=== PATIENT | female | born 1960 | race Two or more races ===

== ENCOUNTER 2018-10-22 12:21 | Inpatient (IN) | payer BC, OTHER ==
[~2018-10-22] VITALS: Ht 157.5 cm; Wt 99.4 kg
[2018-10-22] MEDS ORDERED: MORPHINE SULFATE 4 MG/ML SYR/VIAL IV ONE (12:45)
[2018-10-22] MEDS ORDERED: ONDANSETRON HCL 4 MG/2 ML VIAL IV ONE (12:45)
[2018-10-22 13:38] LABS: Urine Bacteria NONE SEEN /hpf (None Seen); Urine Blood TRACE /uL (Negative); Urine Mucus FEW (None Seen); Urine Specific Gravity 1.018 (1.001-1.035); Urine WBC 1 /hpf (0 - 5)
[2018-10-22] MEDS ORDERED: LEVOFLOXACIN 500MG 100 ML IV ONE (14:15)
[2018-10-22 14:26] LABS: Hematocrit 34.1 % (36.0-46.0); Hemoglobin 11.7 g/dL (12.2-16.2); Mean Corpuscular Hemoglobin 31.3 pg (28.0-32.0); Mean Corpuscular Hgb Conc. 34.2 g/dL (32.0-36.0); Mean Corpuscular Volume 91.5 fL (80.0-100.0); Platelet Count (auto) 25 10^3/uL (140-450); Red Blood Cells 3.73 10^6/uL (4.0-5.20); Red Cell Distribution Width 15.8 % (11.8-14.3); White Blood Cell 5.2 10^3/uL (4.4-10.8)
[2018-10-22 14:39] LABS: INR 1.34 (0.9-1.15); Partial Thromboplastin Time 26.2 sec (23.78-33.04); Prothrombin Time 14.1 sec (9.27-12.13)
[2018-10-22 14:41] LABS: Albumin 2.4 g/dL (3.4-5.0); Calcium 7.9 mg/dL (8.5-10.1); Potassium 3.5 mmol/L (3.5-5.1)
[2018-10-22 14:44] LABS: BUN/Creatinine Ratio 22.4
[2018-10-22 14:47] LABS: Bilirubin, Total 2.6 mg/dL (0.2-1.0); Total Protein 5.5 g/dL (6.4-8.2)
[2018-10-22 14:51] LABS: Lactic Acid w/Reflex 3.4 mmol/L (0.4-2.0)
[2018-10-22 15:27] LABS: Band Neutrophils % (manual) 0; Basophils % (manual) 0 (0.0-2.0); Blast Cells 0; Eosinophils % (manual) 0 (0-7); Metamyelocytes % 0; Myelocytes % 0; Promyelocytes % 0; Reactive Lymphocytes 0
[2018-10-22] MEDS ORDERED: NITROGLYCERIN 0.4 MG SL TAB SL PRN (15:30)
[2018-10-22] MEDS ORDERED: MORPHINE SULF INJ 2 MG/ML SYRINGE 1ML IV PRN (15:30)
[2018-10-22] MEDS ORDERED: D5W/SOD CHLO 0.9% 1,000 ML IV ONE (15:30)
[2018-10-22 15:57] LABS: Lymphocytes % (manual) 3 (10.0-50.0); Monocytes % (manual) 4 (0-12)
[2018-10-22 15:58] LABS: Amylase 47 U/L (25-115); Lipase 157 U/L (73-393)
[2018-10-22] MEDS: SODIUM CHLORIDE 0.9% 1,000 ML IV SCH ×2 (16:01→22:23)
[2018-10-22] MEDS: HYDROmorphone HCL 2 MG/ML VL IV PRN ×2 (17:06→22:23)
[2018-10-22] MEDS: ONDANSETRON HCL 4 MG/2 ML VIAL IV PRN (17:06)
--- NOTE | 2018-10-22 18:30 | NUR ---
PATIENT ARRIVED TO THE UNIT WITH AT BEDSIDE, NO DISTRESS NOTED, PATIENT HAS MINIMAL PAIN DUE TO PREVIOUS MEDICATION ADMINISTRATION IN ER. BED LOCKED IN LOWEST POSITION WITH TWO SIDE RAILS UP AND CALL LIGHT IN REACH. INSTRUCTED THE PATIENT ON THE PLAN OF CARE AND WILL CONTINUE TO MONITOR Q HOURLY AND NEEDED.
[2018-10-22 18:45] VITALS: BP 92/57
[2018-10-22 18:59] VITALS: BP 92/52
[2018-10-22] MEDS ORDERED: FURO20TA3 PO (19:03)
[2018-10-22 21:22] VITALS: BP 100/58
[2018-10-23 05:00] VITALS: BP 90/47
[2018-10-23 06:20] LABS: Basophils # (auto) 0 uL; Eosinophils # (auto) 0 uL; Lymphocytes # (auto) 0.2 uL
[2018-10-23] MEDS: HYDROmorphone HCL 2 MG/ML VL IV PRN ×3 (06:22→20:04)
[2018-10-23 06:24] LABS: Hematocrit 32.2 % (36.0-46.0); Lymphocytes % (auto) 1.3 % (10.0-50.0); Mean Corpuscular Hemoglobin 31.3 pg (28.0-32.0); Mean Corpuscular Hgb Conc. 34.1 g/dL (32.0-36.0); Mean Corpuscular Volume 91.7 fL (80.0-100.0); Monocytes % (auto) 8.1 % (0.0-12.0); Neutrophils # (auto) 11.2 uL; Neutrophils % (auto) 90.6 % (37.0-80.0); Platelet Count (auto) 27 10^3/uL (140-450); Red Blood Cells 3.51 10^6/uL (4.0-5.20); White Blood Cell 12.4 10^3/uL (4.4-10.8)
[2018-10-23 06:44] LABS: Magnesium 1.5 mg/dL (1.6-2.6); Potassium 4.7 mmol/L (3.5-5.1)
[2018-10-23 06:50] LABS: Albumin 2.3 g/dL (3.4-5.0); BUN/Creatinine Ratio 32.5; Bilirubin, Total 2.2 mg/dL (0.2-1.0); Total Protein 5.4 g/dL (6.4-8.2)
--- NOTE | 2018-10-23 07:45 | NUR ---
OPENING NOTE ASSUMED CARE OF PT. PT IS A&O X4. ON ROOM AIR, O2 SATURATION 97%. NO SIGNS OF SOB/DISTRESS NOTED. TELE #[id number], HR 68. VERMA CATH INTACT, PATENT AND DRAINING LIGHT SHEREEN URINE TO GRAVITY. BED SET TO LOWEST POSITION/LOCKED, BEDSIDE RAILS UP TO X2, CALL LIGHT WITHIN REACH. INSTRUCTED PT TO CALL FOR ASSISTANCE. DISCUSSED POC WITH PT. PT VERBALIZED UNDERSTANDING. WILL CONTINUE TO MONITOR Q 1HR AND PRN.
[2018-10-23 08:39] VITALS: BP 94/51
[2018-10-23] MEDS: PANTOPRAZOLE 40 MG/10 ML VIAL IV SCH (09:11)
--- NOTE | 2018-10-23 09:55 | NUR ---
RECEIVED CALL FROM [facility] FROM [facility] . REQUESTING AN UPDATE ON THE PATIENT, PATIENT IS ON THE LIVER TRANSPLANT. DR. IYV IS FOLLOWING HER THERE.
[2018-10-23] MEDS ORDERED: VANCOMYCIN 1,250 MG in D5W 5% 250 ML IV ONE (10:45)
[2018-10-23] MEDS ORDERED: VANCOMYCIN PER PHARMACY 0 MG IV SCH (10:45)
[2018-10-23] MEDS ORDERED: MEROPENEM 1GM IVPB 100 ML IV SCH (11:30)
--- NOTE | 2018-10-23 11:45 | NUR ---
SPOKE TO DR. CHANDRA AT THE NURSES STATION, CLARIFIED [place] ORDER. PER DR. PRATEEK ARRIETA TO GIVE. WILL CONTINUE TO MONITOR PATIENT.
[2018-10-23] MEDS: VANCOMYCIN 1GM/250ML 250 ML IV SCH ×2 (12:30→23:35)
[2018-10-23] MEDS: SODIUM CHLORIDE 0.9% 1,000 ML IV SCH ×2 (12:30→21:51)
[2018-10-23 12:33] VITALS: BP 95/52
[2018-10-23] MEDS: MEROPENEM 1GM IVPB 100 ML IV SCH (15:04)
[2018-10-23 16:24] VITALS: BP 103/66
--- NOTE | 2018-10-23 18:06 | NUR ---
ROUNDED ON PATIENT. PATIENT STATED "MY IPHONE IS MISSING, I HAD IT ON MY CHEST AND SOMEONE CAME AND TOOK IT." NURSE LOOKED FOR PHONE AND WAS NOT FOUND. PATIENT CALLED PHONE, PER PATIENT IT WENT STRAIGHT TO [employer]. PATIENT CALLED DAUGHTER TO SEE IF SHE WOULD BE ABLE TO LOCATE PHONE WITH HOME COMPUTER (FIND MY IPHONE) . WILL MAKE CHARGE NURSE AWARE AND JOSE A.
--- NOTE | 2018-10-23 18:17 | NUR ---
LEFT MESSAGE FOR JOSE A MAKING HER AWARE OF THE CURRENT IPHONE SITUATION.
--- NOTE | 2018-10-23 18:36 | NUR ---
IS REQUESTING TO SPEAK TO SECURITY. SECURITY WAS CALLED AND INFORMED OF SITUATION.
--- NOTE | 2018-10-23 19:30 | NUR ---
OPENING NOTE REPORT RECEIVED FROM DAY SHIFT RN PATIENT IS A/OX4, RESTING IN BED WITH AT BEDSIDE. PATIENT AND UPSET AND STATE, "MY PHONE WAS STOLEN EARLIER TODAY". PENDING SECURITY TO COME AND SPEAK WITH PATIENT. PHYSICAL ASSESSMENT DONE-SEE INTERVENTIONS. VERMA DRAINING LIGHT SHEREEN URINE TO GRAVITY. IV FLUIDS INFUSING THROUGH LEFT FOREARM IV. PT NPO AT THIS TIME. POC FOR TONIGHT DISCUSSED AND ALL QUESTIONS ANSWERED. WILL MONITOR Q1H PRN THROUGHOUT SHIFT, CALL LIGHT WITHIN REACH.
--- NOTE | 2018-10-23 19:43 | NUR ---
ENDORSED CARE TO MICH REGAN. NURSE WAS MADE OF CURRENT PHONE SITUATION.
[2018-10-23] MEDS: ONDANSETRON HCL 4 MG/2 ML VIAL IV PRN (20:04)
[2018-10-23 22:00] VITALS: BP 104/60
[2018-10-24] MEDS: MEROPENEM 1GM IVPB 100 ML IV SCH ×2 (01:39→14:15)
[2018-10-24 04:51] VITALS: BP 108/53
[2018-10-24 06:25] LABS: Albumin 2.2 g/dL (3.4-5.0); Calcium 7.5 mg/dL (8.5-10.1)
[2018-10-24 06:28] LABS: BUN/Creatinine Ratio 39.4
[2018-10-24 06:31] LABS: Bilirubin, Total 2.5 mg/dL (0.2-1.0); Total Protein 5.3 g/dL (6.4-8.2)
--- NOTE | 2018-10-24 07:15 | NUR ---
Opening note Assumed care from grapple yarder operator RN. Pt presented A&Ox4 in bed, in lower locked position with catheter bag on the bed. RN educated the pt on returning urine bag to a lower position in order to avoid back flow of urine into the bladder, and place bag on the bedrail to drain to gravity. Pt verbalized understanding. Pt expresses not being able to have a bowel movement due to having a catheter in place. IVs are present to the rt AC with an 18G and Lt forearm with 18G, both are patent. Pt is uncomfortable stating she is feeling pain in her abdomen at 7/10. SOB is not present at this time, pt states she does not need the nasal canula that was previously on at 2L.
--- NOTE | 2018-10-24 07:29 | NUR ---
CLOSING NOTE REPORT ENDORSED TO DAY SHIFT RN PATIENT IS IN RESTROOM AT THIS TIME, ATTEMPTING TO HAVE A BM. NO DISTRESS THROUGHOUT SHIFT.
[2018-10-24 08:00] VITALS: BP 99/45
--- NOTE | 2018-10-24 08:03 | NUR ---
Rufino hospitalistEmmanuel Regarding Patient requesting order for breathing treatment, patient has history of asthma. awaiting call back. Addendum: 10/24/18 at 2028 by LOVE BATRES RN wrong time
[2018-10-24 08:10] VITALS: BP 99/45
[2018-10-24] MEDS: PANTOPRAZOLE 40 MG/10 ML VIAL IV SCH (09:52)
[2018-10-24] MEDS: HYDROmorphone HCL 2 MG/ML VL IV PRN (09:52)
[2018-10-24] MEDS: SODIUM CHLORIDE 0.9% 1,000 ML IV SCH ×2 (10:06→17:44)
[2018-10-24 11:45] VITALS: BP 96/45
[2018-10-24] MEDS: VANCOMYCIN 1GM/250ML 250 ML IV SCH (12:04)
[2018-10-24 16:18] VITALS: BP 100/55
--- NOTE | 2018-10-24 17:53 | NUR ---
Cortés catheter dc'd Order to discontinue cortés catheter. Cortés dc'd with clean technique following deflation of balloon. Patient tolerated well with no complaints of pain. Continue care. Cortés bag empty because nurse aid just emptied it before their shift change. Will continue to monitor patient to make urination is not impaired.
--- NOTE | 2018-10-24 19:35 | NUR ---
Opening Shift Note Assumed care of patient, awake and alert X4. No S/S of distress/SOB on room air. Denies pain. Instructed on POC and to call for assist PRN, will continue to monitor for changes Q1hr and PRN.
--- NOTE | 2018-10-24 19:54 | NUR ---
Paged hospitalist awaiting call back
--- NOTE | 2018-10-24 20:03 | NUR ---
Paged hospitalistEmmanuel Regarding Patient requesting order for breathing treatment, patient has history of asthma. awaiting call back.
--- NOTE | 2018-10-24 20:30 | NUR ---
PATIENTS DAUGHTER CALLED REGARDING SNF PLACEMENT PASSWORD VERIFIED, ACCORDING TO PATIENT'S DAUGHTER SHE IS RETURNING CALL FROM RIYA MARTINEZ REGARDING PLACEMENT TO SNF. SHE AGREES WITH POC AND PLACEMENT TO SNF.
[2018-10-24 21:35] VITALS: BP 99/51
[2018-10-24] MEDS ORDERED: ALBUTEROL SULF 2.5 MG/0.5ML(0.5%) NEB SOLN NEB SCH (22:00)
[2018-10-25] VITALS (7 sets, daily range): BP systolic 95–106; BP diastolic 49–57
[2018-10-25] MEDS: VANCOMYCIN 1GM/250ML 250 ML IV SCH ×3 (00:20→23:59)
[2018-10-25] MEDS: MEROPENEM 1GM IVPB 100 ML IV SCH ×3 (02:44→21:42)
[2018-10-25] MEDS: ALBUTEROL SULF 2.5 MG/0.5ML(0.5%) NEB SOLN NEB PRN ×4 (03:54→22:46)
--- NOTE | 2018-10-25 04:23 | NUR ---
ROUNDS PATIENT SLEEPING NO S/S OF PAIN OR DISTRESS RESPIRATIONS EVEN AND UNLABORED. WILL CONTINUE TO MONITOR.
--- NOTE | 2018-10-25 07:00 | NUR ---
Opening Shift Note Assumed care of patient, awake and alert. No S/S of distress/SOB. Pain reported to abdomen. Pain management options discussed with patient. Instructed on POC and to call for assist PRN, will continue to monitor for changes Q1hr and PRN.
[2018-10-25] MEDS: PANTOPRAZOLE 40 MG/10 ML VIAL IV SCH (09:26)
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
--- NOTE | 2018-10-25 12:06 | NUR ---
Respiratory note: ASSESSED PATIENT FOR PRN TX. PATIENT ASKED IF SHE COULD HAVE ONE. PATIENT RECEIVED BREATHING TX W/O ANY ADVERSE REACTIONS. HR 86, RR 18, SPO2 95% ON ROOM AIR. PATIENT IS AWARE TO HAVE RT PAGED IF BREATHING TX IS NEEDED. WILL CONTINUE TO MONITOR PATIENT.
--- NOTE | 2018-10-25 12:17 | NUR ---
Nutrition Assessment Notes please see attached link for complete assessment Est. Needs ABW [id number] kcal (20-23 kcal/kgBW), 58-73 gms pro (0.8-1.0 gms/kgABW r/t severe hypoalb, elev ammonia). Will continue to monitor pertinent labs and reassess nutrient need prn Addendum: 10/25/18 at [address] Amended: Links added.
[2018-10-25] MEDS: SODIUM CHLORIDE 0.9% 1,000 ML IV SCH ×2 (13:53)
--- NOTE | 2018-10-25 15:00 | NUR ---
PATIENT TOLERATED HER LUNCH WELL. NO NAUSEA, PAIN, OR VOMITING. WILL ADVANCE DIET FOR DINNER THIS EVENING. PATIENT IS AWARE AND AGREES TO ADVANCING THE DIET.
--- NOTE | 2018-10-25 16:22 | NUR ---
Respiratory note: PRN TX GIVEN AT THIS TIME. PATIENT TOLERATED BREATHING TX WELL W.O ANY ADVERSE REACTIONS. WILL CONTINUE TO MONITOR PATIENT.
[2018-10-26] MEDS: HYDROmorphone HCL 2 MG/ML VL IV PRN ×2 (02:02→19:38)
[2018-10-26] MEDS: SODIUM CHLORIDE 0.9% 1,000 ML IV SCH ×3 (02:03→23:19)
[2018-10-26 05:00] VITALS: BP 113/61
[2018-10-26] MEDS: MEROPENEM 1GM IVPB 100 ML IV SCH ×3 (05:41→21:22)
[2018-10-26 06:00] LABS: White Blood Cell 4.3 10^3/uL (4.4-10.8)
[2018-10-26 06:03] LABS: Hematocrit 29.5 % (36.0-46.0); Hemoglobin 10.3 g/dL (12.2-16.2); Mean Corpuscular Hemoglobin 31.7 pg (28.0-32.0); Mean Corpuscular Volume 90.5 fL (80.0-100.0); Platelet Count (auto) 36 10^3/uL (140-450); Red Blood Cells 3.26 10^6/uL (4.0-5.20); Red Cell Distribution Width 16.1 % (11.8-14.3)
[2018-10-26 06:13] LABS: Basophils % (manual) 0 (0.0-2.0); Blast Cells 0; Metamyelocytes % 0; Myelocytes % 0; Promyelocytes % 0; Reactive Lymphocytes 0
[2018-10-26 06:15] LABS: Albumin 2.2 g/dL (3.4-5.0); Calcium 7.1 mg/dL (8.5-10.1); Potassium 3.2 mmol/L (3.5-5.1)
[2018-10-26 06:19] LABS: BUN/Creatinine Ratio 23.5; Bilirubin, Total 1.9 mg/dL (0.2-1.0)
--- NOTE | 2018-10-26 07:25 | NUR ---
Opening Shift Note Assumed care of patient, awake and alert. No S/S of distress/SOB or pain. Tolerated soft diet for breakfast. Instructed on POC and to call for assist PRN, will continue to monitor for changes Q1hr and PRN.
[2018-10-26 07:52] LABS: Band Neutrophils % (manual) 2; Eosinophils % (manual) 3 (0-7); Lymphocytes % (manual) 13 (10.0-50.0); Monocytes % (manual) 9 (0-12)
[2018-10-26 08:00] VITALS: BP 109/53
[2018-10-26 09:00] VITALS: BP 109/53
[2018-10-26] MEDS: PANTOPRAZOLE 40 MG/10 ML VIAL IV SCH (09:31)
--- NOTE | 2018-10-26 10:40 | NUR ---
Dr. Radha Villatoro at bedside. Received verbal order to start patient on regular diet for lunch today.
--- NOTE | 2018-10-26 10:42 | NUR ---
Respiratory note: ASSESSED PT FOR PRN TX PT WAS AWAKE AND ALERT NO RESP DISTRESS NOTED. HR 77, RR 16, SPO2 96% ON ROOM AIR. BS ARE CLEAR, NO INDICATION FOR TX AT THIS TIME. PT KNOWS TO HAVE RT PAGED IF TX IS NEEDED.
[2018-10-26] MEDS: VANCOMYCIN 1GM/250ML 250 ML IV SCH (11:06)
[2018-10-26 13:00] VITALS: BP 116/65
--- NOTE | 2018-10-26 13:00 | NUR ---
PATIENT ABLE TO TOLERATE REGULAR DIET CLAIMED. ATE 1/4 OF MEAL SERVED. DENIES ANY NAUSEA AND VOMITING.
[2018-10-26 16:56] VITALS: BP 112/62
--- NOTE | 2018-10-26 17:27 | NUR ---
PATIENT COMPLAINED OF "TOO SLEEPY", ASKED TO CHECK HER BLOOD SUGAR. CHECKED AND IT'S NORMAL: 102MG/DL. NO S/SX OF HYPOGLYCEMIA. PATIENT IS ALERT AND ORIENTED X 4, NOT SWEATING, AND NO DIZZINESS NOTED. SAID THAT IT WAS HER FIRST TIME AGAIN TO GET DILAUDID MEDICINE THAT WAS GIVEN TO HER AROUND 0200 THIS MORNING. ADVISED NOT TO TAKE "STRONG" PAIN MEDICATION. PATIENT VERBALIZED UNDERSTANDING. WILL CONTINUE CARE.
[2018-10-26] MEDS: ONDANSETRON HCL 4 MG/2 ML VIAL IV PRN ×2 (18:14→23:17)
--- NOTE | 2018-10-26 18:23 | NUR ---
PATIENT REFUSED DINNER, SAID THAT SHE IS TOO NAUSEOUS TO EAT. GAVE ZOFRAN 4MG IV PRN FOR N/V ORDERED BY MD. WILL CONTINUE CARE
--- NOTE | 2018-10-26 19:30 | NUR ---
Opening Shift Note Assumed care of patient, awake and alert. No S/S of distress/SOB. Family at bedside. Instructed on POC and to call for assist PRN, will continue to monitor for changes Q1hr and PRN.
--- NOTE | 2018-10-26 21:00 | NUR ---
Patient stated that she was unable to eat all day. Patient has increased pain and nausea. No reports of vomitting. Will continue to monitor.
[2018-10-26 22:00] VITALS: BP 129/61
[2018-10-27] VITALS (7 sets, daily range): BP systolic 103–123; BP diastolic 54–67
--- NOTE | 2018-10-27 00:55 | NUR ---
PT SEEN SLEEPING IN BED ON RA, NO RESP DISTRESS NOTED, BS CLEAR AND DIMINISHED, RR 12. PRN NEB TX NOT INDICATED AT THIS TIME.
[2018-10-27] MEDS: HYDROmorphone HCL 2 MG/ML VL IV PRN ×4 (03:06→20:28)
[2018-10-27] MEDS: ONDANSETRON HCL 4 MG/2 ML VIAL IV PRN ×4 (03:06→20:26)
[2018-10-27] MEDS: MEROPENEM 1GM IVPB 100 ML IV SCH ×2 (05:27→13:44)
--- NOTE | 2018-10-27 06:20 | NUR ---
Patient has had 4 reported BM's - diarrhea. Patient stated that pain has not really subsided and she still feels nauseated even with medication. Will endorse to michael EPPS.
[2018-10-27] MEDS: SODIUM CHLORIDE 0.9% 1,000 ML IV SCH ×2 (07:21→15:18)
[2018-10-27] MEDS ORDERED: RIFA550T PO (09:46)
[2018-10-27] MEDS ORDERED: SPIR50TA5 PO (09:46)
[2018-10-27] MEDS: PANTOPRAZOLE 40 MG/10 ML VIAL IV SCH (09:47)
--- NOTE | 2018-10-27 10:00 | NUR ---
Respiratory note: PATIENT SEEN FOR PRN TX, MED-NEB NOT INDICATED AT THIS TIME SHE IS IN NO ACUTE RESPIRATORY DISTRESS. SPO2 94% ON 2LPM N/C. PATIENT INSTRUCTED TO CALL FOR RT IF SHE FELT THE NEED FOR TX AT A LATER TIME.
[2018-10-27 10:08] LABS: Red Blood Cells 4.11 10^6/uL (4.0-5.20)
[2018-10-27 10:10] LABS: Hematocrit 37.2 % (36.0-46.0); Hemoglobin 12.6 g/dL (12.2-16.2); Mean Corpuscular Hemoglobin 30.7 pg (28.0-32.0); Mean Corpuscular Hgb Conc. 33.9 g/dL (32.0-36.0); Mean Corpuscular Volume 90.5 fL (80.0-100.0); Platelet Count (auto) 42 10^3/uL (140-450); Red Cell Distribution Width 16.4 % (11.8-14.3); White Blood Cell 6.4 10^3/uL (4.4-10.8)
[2018-10-27 10:17] LABS: Basophils % (manual) 0 (0.0-2.0); Blast Cells 0; Eosinophils % (manual) 0 (0-7); Metamyelocytes % 0; Myelocytes % 0; Promyelocytes % 0; Reactive Lymphocytes 0
[2018-10-27 10:22] LABS: Potassium 3.6 mmol/L (3.5-5.1)
[2018-10-27 10:25] LABS: Albumin 2.5 g/dL (3.4-5.0); Calcium 7.3 mg/dL (8.5-10.1); Magnesium 1.7 mg/dL (1.6-2.6)
[2018-10-27 10:30] LABS: BUN/Creatinine Ratio 18.1; Bilirubin, Total 3.3 mg/dL (0.2-1.0); Total Protein 5.8 g/dL (6.4-8.2)
--- NOTE | 2018-10-27 10:46 | NUR ---
AT BEDSIDE DR. CHANDRA AT BEDSIDE. ORDERS RECEIVED FOR STOOL SAMPLE FOR C.DIFF AND SOCIAL SERVICE CONSULT FOR TRANSFER TO [facility]. ORDER READ BACK.
--- NOTE | 2018-10-27 11:44 | NUR ---
I placed a call to Dr. Almaguer to discuss the plan of care/transfer order for this patient.
[2018-10-27 11:58] LABS: Band Neutrophils % (manual) 2; Lymphocytes % (manual) 6 (10.0-50.0); Monocytes % (manual) 4 (0-12)
[2018-10-27] MEDS: VANCOMYCIN 1GM/250ML 250 ML IV SCH ×2 (12:02)
--- NOTE | 2018-10-27 12:05 | NUR ---
STOOL SAMPLE STOOL SAMPLE SENT TO LAB ALONG WITH REQUIRED C.DIFF FORM SIGNED BY STOREROOM SUPERVISOR.
--- NOTE | 2018-10-27 13:56 | NUR ---
I received a message from Farrah at [facility] (phone [phone])-faxed her requested face sheet and transfer summary to [phone]. I spoke with her-she will notify the transfer center who will give me a call.
--- NOTE | 2018-10-27 15:52 | NUR ---
TRANSFER RECEIVED PHONE CALL FROM [facility], SPOKE TO [facility] ([phone]). [facility] STATING PT HAS BEEN ACCEPTED BY DR. NEGRETE. PT TO BE TRANSFERRED TO ROOM 8305. ADDRESS: [address] [place] [id number]. REPORT TO BE CALLED TO [phone]. [facility] TO BE CONTACTED BY PRIMARY RN TO ARRANGE TRANSPORT.
--- NOTE | 2018-10-27 16:18 | NUR ---
TRANSPORT CONTACTED [facility] FOR TRANSPORT. PT TO BE PICKED UP AT 1800. [place] ADDRESS PROVIDED. SPOKE TO HE.
--- NOTE | 2018-10-27 16:34 | NUR ---
REPORT CONTACTED [facility], SPOKE TO MICH EMMANUEL. REPORT GIVEN. ALL QUESTIONS ANSWERED. NUMBER PROVIDED FOR CALL BACK IF QUESTIONS ARISE. PATIENTS GAYLE AT BEDSIDE AWARE OF PENDING TRANSFER.
--- NOTE | 2018-10-27 16:40 | NUR ---
I spoke with primary nurse Madelin, she has the bed assignment from [facility] and has already set up [facility] time 1800-I had called [facility] and was on hold for more than 15 minutes with the transfer center (returning their call).
--- NOTE | 2018-10-27 17:53 | NUR ---
TRANSPORT US RECEIVED PHONE CALL FROM [facility], [employer] SECRETARY IS GOING TO BE CLOSER TO [phone]. PT MADE AWARE. CALLED [facility] [place] TO INFORM OF DELAY, SPOKE TO MELO. MELO AWARE OF DELAY.
--- NOTE | 2018-10-27 19:08 | NUR ---
PT CARE ENDORSED PT CARE ENDORSED TO [facility]. PROVIDED WITH TRANSFER CENTER CONTACT INFORMATION AND DC PACKET.
--- NOTE | 2018-10-27 20:47 | NUR ---
Pt being trans to another hosp Order obtained for transfer of MARCI MARISCAL to . Report called/given to []. Report given to EMS transport team. Medication reconciliation form completed and copy given to patient. Transported via [] along with copied chart and imaging films/disk and all personal belongings. No distress noted on time of departure. Family notified of destination and room number, verbalized understanding. NOTE: []
== END 2018-10-27 20:47 | disposition short-term general hospital (02) | DRG 871 ==
LOC: EDBD 12:21 → ER 12:26 → TELE 15:15 → TELE-WESTW 18:35
PROVIDERS: ADMIT Nurse Practitioner Acute Care; ATTEND Internal Medicine
DX: A41.89 Other specified sepsis (principal); K85.90 Acute pancreatitis without necrosis or infection, unspecified; E44.0 Moderate protein-calorie malnutrition; E87.2 Acidosis; Z68.41 Body mass index [BMI] 40.0-44.9, adult; Z94.4 Liver transplant status; K75.81 Nonalcoholic steatohepatitis (NASH); K74.60 Unspecified cirrhosis of liver; J45.909 Unspecified asthma, uncomplicated; E66.9 Obesity, unspecified; Z88.0 Allergy status to penicillin; Z88.1 Allergy status to other antibiotic agents; Z88.8 Allergy status to other drugs, medicaments and biological substances; Z90.49 Acquired absence of other specified parts of digestive tract; Z87.01 Personal history of pneumonia (recurrent); Z90.710 Acquired absence of both cervix and uterus
CPT/HCPCS: 36415; 71045; 74176; 74181; 80053; 80061; 80202; 81001; 82140; 82150; 82962; 83036; 83605; 83690; 83735; 84443; 84484; 85007; 85025; 85027; 85610; 85730; 87040; 87077; 87186; 87493; 94640; C9113; G0378; J1956; J2185; J2405; J7042

== ENCOUNTER 2025-03-11 01:18 | Emergency (ER) | payer MEDICARE ==
[~2025-03-11] VITALS: Ht 160 cm; Wt 83.4 kg
[~2025-03-11 01:18] MED LIST: FURO20TA3 PO; RIFA550T PO; SPIR50TA5 PO
--- NOTE | 2025-03-11 01:46 | ED.PDOC ---
HPI Comments 64 year old female presents to the ED with a chief complaint of chest pain onset last night around 22:00. Patient states she began experiencing back pain 1 day ago, last night began experiencing chest pain, rates pain 7/10, described as a heavy sensation on chest causing shortness of breath. Patient was seen at urgent care 1 week ago for similar symptoms, had flu-like symptoms 3 weeks ago, nasal congestion has not resolved. About 1 year ago she was admitted at [facility] for c ardiology workup, was negative. PMHx liver disease, asthma. Denies nausea, vomiting, diarrhea, dizziness, weakness, numbness/tingling, fever, chills. No other symptoms or modifying factors present at this time. Chief Complaint: Chest Pain Time Seen by MD: 01:30 Primary Care Provider: LEA Richter Notes: Medications, Allergies Allergies: Coded Allergies: Penicillins (Verified Allergy, Unknown, 09/20/15) Sulfamethoxazole w/Trimethoprim (Verified Allergy, Unknown, 09/20/15) Tetracycline (Verified Allergy, Unknown, 09/20/15) Home Meds Reported Medications Rifaximin (Xifaxan) 550 Mg Tab, 500 MG PO BID, TAB 10/27/18 Spironolactone (Spironolactone) 50 Mg Tab, 1 TAB PO BID, #30 TAB 5 Refills 10/27/18 Furosemide (Furosemide) 20 Mg Tab, 20 MG PO DAILY for 30 Days, MG 10/22/18 Information Source: Patient Mode of Arrival: Ambulatory Severity: Moderate Timing: Hours Duration: Since onset Prehospital treatment: None Location: Chest (L) Quality: Pressure Onset: While Asleep Cardiac Risk Factors: None PE Risk Factors: None History of: Similar pain in past Modifying Factors: Nothing Associated Signs and Symptoms: SOB Past Medical History PAST MEDICAL HISTORY: Asthma, Liver Surgical History: Appendectomy, Cholecystectomy, Hysterectomy Surgical History (Other): liver transplant BUILDING SERVICES TECHNICIAN History: No Pertinent BUILDING SERVICES TECHNICIAN History Family History Family History: Unknown Social History Smoker: Non-Smoker Alcohol: Denies ETOH Use Drugs: Denies Drug Use Lives In: Home Constitutional: reports: chills; denies: diaphoresis, fatigue, fever, malaise, sweats, weakness, others EENTM: reports: nose congestion; denies: blurred vision, double vision, ear bleeding, ear discharge, ear drainage, ear pain, ear ringing, eye pain, eye redness, hearing loss, mouth pain, mouth swelling, nasal discharge, nose bleeding, nose pain, photophobia, tearing, throat pain, throat swelling, voice changes, others Respiratory: reports: shortness of breath; denies: cough, hemoptysis, orthopnea, SOB at rest, SOB with excertion, stridor, wheezing, others Cardiovascular: reports: chest pain; denies: dizzy spells, diaphoresis, Dyspnea on exertion, edema, irregular heart beat, left arm pain, lightheadedness, palpitations, PND, syncope, others Gastrointestinal: denies: abdomen distended, abdominal pain, blood streaked bowels, constipated, diarrhea, dysphagia, difficulty swallowing, hematemesis, melena, nausea, poor appetite, poor fluid intake, rectal bleeding, rectal pain, vomiting, others Genitourinary: denies: abnormal vagina bleeding, burning, dyspareunia, dysuria, flank pain, frequency, hematuria, incontinence, pain, , vagina discharge, urgency, others Neurological: denies: dizziness, fainting, headache, left sided numbness, left sided weakness, numbness, paresthesia, pre-existing deficit, right sided numbness, right sided weakness, seizure, speech problems, tingling, tremors, weakness, others Musculoskeletal: reports: back pain; denies: gout, joint pain, joint swelling, muscle pain, muscle stiffness, neck pain, others Integumetry: denies: bruises, change in color, change in hair/nails, dryness, laceration, lesions, lumps, rash, wounds, others Allergic/Immunocompromised: denies: Difficulty Healing, Frequent Infections, Hives, Itching, others Hematologic/Lymphatic: denies: anemia, blood clots, easy bleeding, easy bruising, swollen glands, others Endocrine: denies: excessive hunger, excessive sweating, excessive thirst, excessive urination, flushing, intolerance to cold, intolerance to heat, unexplained weight gain, unexplained weight loss, others Psychiatric: denies: anxiety, bipolar disorder, depression, hopeless, panic disorder, schizophrenia, sleepless, suicidal, others All Other Systems: Reviewed and Negative Physical Exam General Appearance: No Apparent Distress, Normal HEENT: Normal ENT Inspection, Pharynx Normal, TMs Normal Neck: Full Range of Motion, Non-Tender, Normal, Normal Inspection Respiratory: Chest Non-Tender, Lungs Clear, No Accessory Muscle Use, No Respiratory Distress, Normal Breath Sounds Cardiovascular: No Edema, No JVD, No Murmur, No Gallop, Normal Peripheral Pulses, Regular Rate/Rhythm Breast Exam: Deferred Gastrointestinal: No Organomegaly, Non Tender, No Pulsatile Mass, Normal Bowel Sounds, Soft Genitalia: Deferred Pelvic: Deferred Rectal: Deferred Extremities: No calf tenderness, Normal capillary refill, Normal inspection, Normal range of motion, Non-tender, No pedal edema Musculoskeletal : Apperance: Normal Neurologic: Alert, dental practitioner II-XII nml as Tested, No Motor Deficits, Normal Affect, Normal Mood, No Sensory Deficits Cerebellar Function: Normal Reflexes: Normal Skin: Dry, Normal Color, Warm Lymphatic: No Adenopathy Was a procedure done? Was a procedure done?: No CP Differential Dx Differential Diagnosis: A-fib, Angina, Heart Failure, CO, Pulmonary Embolus, V- Fib, V-Tach, Other X-Ray, Labs, Meds, VS Vital Signs Date Time Temp Pulse Resp B/P (MAP) Pulse Ox O2 Delivery O2 Flow Rate FiO2 03/11/25 01:27 77 03/11/25 01:21 98.7 81 20 148/76 98 98.7 Lab Test 03/11/25 02:13 03/11/25 01:26 Range/Units Troponin I High Sensitivity < 3 L < 3 L </=34 ng/L Time of 1ST Reevaluation: 02:00 Reevaluation 1ST: Unchanged Patient Education/Counseling: Diagnosis, Treatment, Prognosis Family Education/Counseling: No Family Present SEPSIS Sepsis Screen Date sepsis recognized/suspect: Mar 11, 2025 Time Sepsis recognized/suspect: 0120 Recent Procedure: No On Antibiotic Therapy: No Respiratory Rate >20: No Heart Rate >90: No Temp<36 C (96.8 F) or >38.3 C: No SBP <90 or MAP <65 mmHG: No New Acute Mental Status Change: No Is the patient on CPAP, BIPAP,: No Physician Orders Electrocardigram (03/11/25 01:21) Electrocardigram (03/11/25 02:21) Electrocardigram (03/11/25 04:21) Vital Signs Date Time Temp Pulse Resp B/P (MAP) Pulse Ox O2 Delivery O2 Flow Rate FiO2 03/11/25 01:27 77 03/11/25 01:21 98.7 81 20 148/76 98 98.7 Departure 1 Departure Time of Disposition: 03:53 Impression: Primary Impression: Atypical chest pain Disposition: HOME / SELF CARE / HOMELESS Condition: Stable Critical Care Note Critical Care Time?: No Stability Stability form required: No Heart Score Heart Score: Heart Score Response (Comments) Value History Slightly Suspicious 0 EKG Repolarization Disturb 1 Age >65 2 Risk Factors 1 or 2 risk factors 1 Troponin Normal limit 0 Total 4 I personally scribed for MAC NI MD ([email or web address]) on 03/11/25 at 01:46. Electronically submitted by Kailee Montoya ([email or web address]). MAC NI MD Mar 11, 2025 01:46
[2025-03-11 04:15] VITALS: BP 133/79; PULSE 65; RESP 18; TEMP 98; O2SAT 96
[2025-03-11] MEDS: HYDROcodone-ACET 10/325MG TAB PO ONE (04:20)
--- NOTE | 2025-03-11 04:40 | DVH ---
CHEST RADIOGRAPH Indication: chest pain Technique: Single frontal view of the chest was obtained COMPARISON: XR CHEST 1 VIEW on DOS: 09/27/23 FINDINGS: Lines and Tubes: None Lungs: Clear Pleura: No effusion. No pneumothorax. Cardiomediastinal contours: Unremarkable Bones: Unremarkable IMPRESSION: 1. No acute disease.
--- NOTE | 2025-03-12 03:52 | ECG ---
[facility] Test Date: 2025-03-11 Test Time: 01:27:53 Pat Name: MARCI MARISCAL Department: ED Room: Gender: F Statue Carver: KYARA : 1960 Requested By: MAC NI Order Number: [id number] Reading MD: Angel Yap Measurements Intervals [place] Rate: 77 P: 53 RI: 165 QRS: 11 QRSD: 97 T: 59 QT: 429 QTc: 486 Interpretive Statements Sinus rhythm Low voltage, precordial leads Borderline prolonged QT interval Electronically Signed On 03-15-2025 10:18:08 PDT by Angel Yap Please click the below link to view image of tracing.
== END 2025-03-11 05:26 | disposition home or self-care (01) ==
LOC: ER 01:18
DX: R07.89 Other chest pain (principal); Z90.49 Acquired absence of other specified parts of digestive tract; Z90.710 Acquired absence of both cervix and uterus; Z88.2 Allergy status to sulfonamides; Z88.1 Allergy status to other antibiotic agents; Z88.0 Allergy status to penicillin; Z79.899 Other long term (current) drug therapy
CPT/HCPCS: 36415; 71045; 84484; 93005